=== PATIENT | male | born 1990 | race Caucasian/White ===

== ENCOUNTER 2016-09-19 12:18 | Emergency (ER) | payer SELFPAY ==
[~2016-09-19] VITALS: Ht 175.3 cm; Wt 72.0 kg
[2016-09-19 12:24] VITALS: BP 135/77; PULSE 76; RESP 20; TEMP 98.4; O2SAT 98
--- NOTE | 2016-09-19 13:15 | PD ---
HPI Chief Complaint: Skin Problem Time Seen by Provider: 13:00 Travel History International Travel<30 days: No Contact w/Intl Traveler<30days: No Traveled to known affect area: No History of Present Illness HPI 26-year-old male presents to the emergency room for evaluation of the lesion to the top of his head that has been present for the past 2 days. Patient states it started off as a itchy bump that he has been scratching. States it has since drained sticky discharge but the bump has gone down. Patient denies any pain. He has not taken anything or done anything for his symptoms. States he went to work today in the told him it looked green and yellow so he should come to the emergency room. He denies fever, chills, nausea, and vomiting. No chronic medical conditions or daily medications. PFSH Past Medical History Medical History: Denies Significant Hx Diminished Hearing: No Tetanus Vaccination: Unknown Past Surgical History Surgical History: No Previous Surgery Social History Alcohol Use: No Tobacco Use: Yes (1 PPD) Substance Use: No Allergies-Medications (Allergen,Severity, Reaction): Coded Allergies: No Known Allergies (Unverified , 09/19/16) Reported Meds & Prescriptions Reported Meds & Active Scripts Active Dandruff Topical (Selenium Sulfide) 1 % Sham 1 Applic TOPICAL 2XWEEK Review of Systems Except as stated in HPI: all other systems reviewed are Neg Physical Exam Narrative GENERAL: Well-nourished, well-developed male in no acute distress. Afebrile. Ambulatory. SKIN: Focused skin assessment warm/dry. There is a 2 similar in diameter yellow plaque on the top of the scalp that is nontender. No surrounding erythema. No drainage. No increased warmth. There is flaking, yellow debris throughout the hair. HEAD: Normocephalic. EYES: No scleral icterus. No injection or drainage. NECK: Supple, trachea midline. No JVD or lymphadenopathy. CARDIOVASCULAR: Regular rate and rhythm without murmurs, gallops, or rubs. RESPIRATORY: Breath sounds equal bilaterally. No accessory muscle use. PSYCHIATRIC: No delusional thought processes. No hallucinations. Data Data Last Documented VS Vital Signs Date Time Temp Pulse Resp B/P Pulse Ox O2 Delivery O2 Flow Rate FiO2 09/19/16 12:24 98.4 76 20 135/77 98 MDM Medical Decision Making Medical Screen Exam Complete: Yes Emergency Medical Condition: Yes Medical Record Reviewed: Yes Differential Diagnosis Seborrheic dermatitis, psoriasis, tinea capitis, abscess Narrative Course 26-year-old male presents to the emergency room for evaluation of itchy, sticky , draining lesion on the top of his head for the past 2 days. Patient denies any pain, fever, chills, nausea, vomiting. Vital signs stable. Patient is well -appearing. Physical exam reveals yellow, 2 cm, plaque on the top of the patient's scalp with surrounding flaking debris throughout the hair. The lesion is nontender. No erythema or increased warmth. There is clear, yellow but no purulent drainage. No evidence of bacterial infection. Likely seborrheic dermatitis or other benign scalp lesion. Patient treated with selenium sulfide and told to follow-up with a primary care physician or return for worsening symptoms. He understands and agrees to plan. Diagnosis Primary Impression: Seborrheic dermatitis of scalp Referrals: Primary Care Physician Patient Instructions: General Instructions, Seborrheic Dermatitis (DC) Additional Instructions: Rest and drink plenty of fluids. Shampoo as directed. The shampoo should be left on for five to ten minutes before rinsing. Use at least 2-3 times per week for several weeks, until remission is achieved. Follow-up with a primary care physician. Return to the emergency room for worsening symptoms. Med/Other Pt SpecificInfo: Prescription(s) given Scripts Selenium Sulfide Topical (Dandruff Topical)1 % Sham1 Applic TOPICAL 2XWEEK #1 BOTTLE Ref 1 Prov:Margie Menard MD 09/19/16 Disposition: 01 DISCHARGE HOME Condition: Stable Mary Bedolla Sep 19, 2016 13:15
[2016-09-19] MEDS ORDERED: DAND1SHA3 TOPICAL (13:16)
== END 2016-09-19 13:35 | disposition home or self-care (01) ==
LOC: PHED 12:18
DX: L21.9 Seborrheic dermatitis, unspecified (principal)
CPT/HCPCS: 99283